=== PATIENT | male | born 1965 | race African-American/Black ===

== ENCOUNTER 2021-05-19 12:43 | Emergency (ER) | payer MEDICAID, OTHER ==
[~2021-05-19] VITALS: Ht 165.1 cm; Wt 95.3 kg
[2021-05-19 13:19] VITALS: BP 137/75
[2021-05-19] MEDS ORDERED: cefTRIAXone SOD 1,000 MG VL IM ONE (15:00)
[2021-05-19] MEDS ORDERED: CEPH500C PO (15:02)
== END 2021-05-19 15:10 | disposition home or self-care (01) ==
LOC: ER 12:49
DX: S00.561A Insect bite (nonvenomous) of lip, initial encounter (principal); W57.XXXA Bitten or stung by nonvenomous insect and other nonvenomous arthropods, initial encounter; Y93.89 Activity, other specified; Y92.89 Other specified places as the place of occurrence of the external cause; Y99.8 Other external cause status
CPT/HCPCS: 96372; 99283; J0696

== ENCOUNTER 2021-06-01 10:48 | Emergency (ER) | payer MEDICAID ==
[~2021-06-01] VITALS: Ht 165.1 cm; Wt 95.3 kg
[~2021-06-01 10:48] MED LIST: CEPH500C PO
[2021-06-01 10:52] VITALS: BP 150/77
[2021-06-01] MEDS ORDERED: cefTRIAXone SOD 1,000 MG VL IM ONE (12:15)
[2021-06-01] MEDS ORDERED: MUPI2CRE17 EX (12:16)
[2021-06-01] MEDS ORDERED: CLIN300C8 PO (12:16)
== END 2021-06-01 12:58 | disposition home or self-care (01) ==
LOC: ER 10:48
DX: L01.00 Impetigo, unspecified (principal); I10 Essential (primary) hypertension; K21.9 Gastro-esophageal reflux disease without esophagitis; E11.9 Type 2 diabetes mellitus without complications; Z79.2 Long term (current) use of antibiotics; Z79.899 Other long term (current) drug therapy
CPT/HCPCS: 96372; 99283; J0696

== ENCOUNTER 2021-07-14 06:33 | Emergency (ER) | payer MEDICAID ==
[~2021-07-14] VITALS: Ht 165.1 cm; Wt 99.8 kg
[2021-07-14 06:33] VITALS: BP 157/90
[~2021-07-14 06:33] MED LIST changes: +CLIN300C8 PO; +MUPI2CRE17 EX
[2021-07-14] MEDS ORDERED: FLUO0.024 EX (07:05)
[2021-07-14] MEDS ORDERED: CEPH500C PO (07:05)
[2021-07-14] MEDS ORDERED: HYDR50CA PO (07:05)
== END 2021-07-14 07:08 | disposition home or self-care (01) ==
LOC: ER 06:33
DX: T78.40XA Allergy, unspecified, initial encounter (principal); I10 Essential (primary) hypertension; E11.9 Type 2 diabetes mellitus without complications; K21.9 Gastro-esophageal reflux disease without esophagitis; Z79.899 Other long term (current) drug therapy; Y92.89 Other specified places as the place of occurrence of the external cause

== ENCOUNTER 2021-09-22 07:39 | Emergency (ER) | payer MEDICAID ==
[~2021-09-22] VITALS: Ht 165.1 cm; Wt 95.3 kg
[~2021-09-22 07:39] MED LIST changes: +FLUO0.024 EX; +HYDR50CA PO
[2021-09-22] MEDS ORDERED: ACETAMINOPHEN 325 MG TAB PO ONE (08:00)
[2021-09-22 09:05] LABS: Hematocrit 46.5 % (41.0-53.0); Hemoglobin 16.1 g/dL (13.5-17.5); Mean Corpuscular Hemoglobin 30.6 pg (28.0-32.0); Mean Corpuscular Hgb Conc. 34.6 g/dL (32.0-36.0); Mean Corpuscular Volume 88.3 fL (80.0-100.0); Red Blood Cells 5.27 10^6/uL (4.5-5.90); Red Cell Distribution Width 14.9 % (11.8-14.3); White Blood Cell 3.7 10^3/uL (4.4-10.8)
[2021-09-22 09:20] LABS: Blast Cells 0; Metamyelocytes % 0; Myelocytes % 0; Promyelocytes % 0; Reactive Lymphocytes 0
[2021-09-22 09:29] LABS: BUN/Creatinine Ratio 7.3; Bilirubin, Total 0.7 mg/dL (0.2-1.0); Calcium 8.7 mg/dL (8.5-10.1); Potassium 3.7 mmol/L (3.5-5.1)
[2021-09-22 09:31] LABS: Total Protein 7.9 g/dL (6.4-8.2)
[2021-09-22 09:46] LABS: Band Neutrophils % (manual) 1; Basophils % (manual) 1 (0.0-2.0); Eosinophils % (manual) 2 (0-7); Lymphocytes % (manual) 24 (10.0-50.0); Monocytes % (manual) 16 (0-12)
[2021-09-22 09:52] LABS: Urine Bacteria NONE SEEN /hpf (None Seen); Urine Blood 1+ /uL (Negative); Urine Specific Gravity 1.033 (1.001-1.035); Urine WBC 1 /hpf (0 - 3)
[2021-09-22] MEDS ORDERED: METOCLOPRAMIDE HCL 5MG/ml INJ 2ml VIAL IV ONE (11:00)
[2021-09-22] MEDS ORDERED: KETOROLAC TROMETH 30 MG/ML 1ML VIAL IV ONE (11:00)
[2021-09-22 15:21] VITALS: BP 156/80
[2021-09-22] MEDS ORDERED: CYCL-837 PO (16:03)
[2021-09-22] MEDS ORDERED: TRAM50TA2 PO (16:03)
[2021-09-22] MEDS ORDERED: NAP500T PO (16:03)
== END 2021-09-22 16:21 | disposition left against medical advice (07) ==
LOC: ER 07:39
DX: B34.9 Viral infection, unspecified (principal); M54.50 Low back pain, unspecified; E11.65 Type 2 diabetes mellitus with hyperglycemia; I10 Essential (primary) hypertension; K21.9 Gastro-esophageal reflux disease without esophagitis; Z87.39 Personal history of other diseases of the musculoskeletal system and connective tissue; Z79.2 Long term (current) use of antibiotics; Z79.899 Other long term (current) drug therapy; Z20.822 Contact with and (suspected) exposure to COVID-19
CPT/HCPCS: 36415; 71046; 72100; 80053; 81001; 85007; 85027; 87426; 87804; 93005; 96374; 96375; 99285; J1885; J2765

== ENCOUNTER 2021-11-21 07:18 | Emergency (ER) | payer MEDICAID ==
[~2021-11-21] VITALS: Ht 165.1 cm; Wt 102.4 kg
[~2021-11-21 07:18] MED LIST changes: +CYCL-837 PO; +NAP500T PO; +TRAM50TA2 PO
[2021-11-21 08:18] VITALS: BP 116/67
[2021-11-21] MEDS ORDERED: CEPH-509 PO (09:08)
[2021-11-21] MEDS ORDERED: ACET-1158 PO (09:09)
== END 2021-11-21 09:13 | disposition home or self-care (01) ==
LOC: ER 07:18
DX: L03.116 Cellulitis of left lower limb (principal); I10 Essential (primary) hypertension; E11.9 Type 2 diabetes mellitus without complications; K21.9 Gastro-esophageal reflux disease without esophagitis; Z79.2 Long term (current) use of antibiotics; Z79.899 Other long term (current) drug therapy

== ENCOUNTER 2023-10-22 07:19 | Emergency (ER) | payer MEDICAID ==
[~2023-10-22] VITALS: Ht 165.1 cm; Wt 102.2 kg
[~2023-10-22 07:19] MED LIST changes: +ACET500T58 PO; +CEPH-509 PO; +CLIN1CAP70 PO; -CLIN300C8 PO; +CYCL-614 PO; +DICL50TA2 PO
[2023-10-22] MEDS: ONDANSETRON ODT 4 MG TAB PO ONE (08:29)
[2023-10-22] MEDS: DexAMETHasone SOD PHOS 10MG/1ML VIAL INJ IM ONE (08:30)
[2023-10-22] MEDS: ALBUTEROL SULF 2.5 MG/0.5ML(0.5%) NEB SOLN NEB ONE (08:58)
[2023-10-22] MEDS ORDERED: PRED20TA2 PO ×2 (09:18→09:42)
[2023-10-22] MEDS ORDERED: AUG875T PO ×2 (09:18→09:42)
[2023-10-22] MEDS ORDERED: PROM1SOL4 PO (09:18)
[2023-10-22] MEDS ORDERED: TOBR1SUS11 EACHEYE (09:18)
[2023-10-22 09:32] VITALS: BP 129/68; PULSE 75; RESP 18; TEMP 98.1; O2SAT 95
[2023-10-22] MEDS ORDERED: TOBR0.3S37 OP (09:42)
[2023-10-22] MEDS ORDERED: IBU600T PO (09:42)
== END 2023-10-22 09:20 | disposition home or self-care (01) ==
LOC: ER 07:19
DX: J45.901 Unspecified asthma with (acute) exacerbation (principal); J06.9 Acute upper respiratory infection, unspecified; H10.9 Unspecified conjunctivitis; I10 Essential (primary) hypertension; E11.9 Type 2 diabetes mellitus without complications; E78.5 Hyperlipidemia, unspecified; K21.9 Gastro-esophageal reflux disease without esophagitis; M19.90 Unspecified osteoarthritis, unspecified site; F15.90 Other stimulant use, unspecified, uncomplicated; Z87.891 Personal history of nicotine dependence; Z79.899 Other long term (current) drug therapy
CPT/HCPCS: 94640; 96372; 99283; J1100; Q0162

== ENCOUNTER 2023-10-28 06:26 | Emergency (ER) | payer MEDICAID ==
[~2023-10-28] VITALS: Ht 165.1 cm; Wt 103.5 kg
[~2023-10-28 06:26] MED LIST changes: +AUG875T PO; +IBU600T PO; +PRED20TA2 PO; +TOBR0.3S37 OP
[2023-10-28 06:35] VITALS: BP 137/77; PULSE 63; RESP 16; TEMP 97.7
[2023-10-28 06:59] VITALS: O2SAT 97
[2023-10-28] MEDS ORDERED: DICL500C76 PO (07:06)
[2023-10-28] MEDS ORDERED: NAPR-746 PO (07:06)
[2023-10-28] MEDS ORDERED: CLIN1CAP70 PO (07:06)
[2023-10-28] MEDS: cefTRIAXone SOD 1,000 MG VL IM ONE (07:16)
== END 2023-10-28 07:25 | disposition home or self-care (01) ==
LOC: ER 06:26
DX: L73.9 Follicular disorder, unspecified (principal); E11.9 Type 2 diabetes mellitus without complications; K21.9 Gastro-esophageal reflux disease without esophagitis; E78.5 Hyperlipidemia, unspecified; I10 Essential (primary) hypertension; F12.90 Cannabis use, unspecified, uncomplicated; Z79.899 Other long term (current) drug therapy; Z79.1 Long term (current) use of non-steroidal anti-inflammatories (NSAID)
CPT/HCPCS: 96372; 99283; J0696

== ENCOUNTER 2024-08-15 10:37 | Emergency (ER) | payer MEDICAID, OTHER ==
[~2024-08-15] VITALS: Ht 165.1 cm; Wt 97.5 kg
[~2024-08-15 10:37] MED LIST changes: +NAPR-746 PO; +PROM1SOL4 PO; +TOBR1SUS11 EACHEYE
[2024-08-15 11:25] VITALS: BP 122/96; PULSE 76; RESP 16; O2SAT 96
[2024-08-15] MEDS: ACETAMINOPHEN 500 MG TAB or CAP PO ONE (11:53)
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
[2024-08-15 12:51] VITALS: TEMP 98.4
--- NOTE | 2024-08-15 13:15 | DVH ---
INDICATION: Trauma COMPARISON: LUMBAR SPINE LTD on DOS: 09/22/21, LUMB2 on DOS: 09/22/21 TECHNIQUE: 3 views of the lumbar spine were obtained. FINDINGS: The lumbar vertebral alignment is normal. The intervertebral disc spaces are well-maintained. No significant facet arthropathy is noted. No acute fracture, vertebral compression deformity or aggressive osseous lesions. The paravertebral soft tissues are grossly unremarkable. IMPRESSION: No acute fracture.
--- NOTE | 2024-08-15 13:15 | DVH ---
INDICATION: Trauma COMPARISON: None TECHNIQUE: 3 views of the cervical spine were obtained. FINDINGS: The cervical vertebral alignment is normal. The predental space is normal. Mild multilevel degenerative disc disease of the cervical spine. No acute fracture, vertebral compression deformity or aggressive osseous lesions. The imaged lung apices are unremarkable. IMPRESSION: No acute fracture.
--- NOTE | 2024-08-15 13:15 | DVH ---
INDICATION: Trauma COMPARISON: None TECHNIQUE:3 views of the thoracic spine were obtained. FINDINGS: The thoracic vertebral alignment is normal. The intervertebral disc spaces are well-maintained. No significant facet arthropathy is noted. No acute fracture, vertebral compression deformity or aggressive osseous lesions. The imaged thorax and abdomen are grossly unremarkable. IMPRESSION: No acute fracture.
[2024-08-15] MEDS ORDERED: METH-1182 PO (13:22)
== END 2024-08-15 13:27 | disposition home or self-care (01) ==
LOC: ER 10:37
DX: S39.012A Strain of muscle, fascia and tendon of lower back, initial encounter (principal); M54.2 Cervicalgia; I10 Essential (primary) hypertension; E11.9 Type 2 diabetes mellitus without complications; E66.9 Obesity, unspecified; F17.200 Nicotine dependence, unspecified, uncomplicated; M19.90 Unspecified osteoarthritis, unspecified site; V59.88XA Occupant (driver) (passenger) of pick-up truck or van injured in other specified transport accidents, initial encounter; Y93.I9 Activity, other involving external motion; Y92.488 Other paved roadways as the place of occurrence of the external cause; Y99.8 Other external cause status
CPT/HCPCS: 72040; 72070; 72100